=== PATIENT | male | born 1990 ===

== ENCOUNTER 2017-10-24 18:57 | Emergency (ER) | payer OTHER ==
[2017-10-24 19:03] VITALS: BMI 32.1
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
[2017-10-24 21:31] VITALS: BP 116/76; PULSE 71; RESP 16; TEMP 99
[2017-10-24 21:36] VITALS: O2SAT 100
--- NOTE | 2017-10-25 09:00 | RAD ---
PROCEDURE: Radiographs of the Left Shoulder HISTORY: fall onto shoulder COMPARISON: No prior. FINDINGS: BONES: Bone alignment and mineralization are normal. There is no acute displaced fracture or bone destruction. JOINTS: Normal. Glenohumeral and acromioclavicular joints preserved. SOFT TISSUES: Normal. OTHER FINDINGS: None. IMPRESSION: No acute fracture or dislocation.
--- NOTE | 2017-10-25 09:04 | RAD ---
PROCEDURE: Right Hip Radiographs. HISTORY: fall, hip injury and pain COMPARISON: None. FINDINGS: BONES: The pelvic ring is intact. Bone alignment and mineralization are normal. There is no acute displaced fracture or bone destruction. JOINTS: Normal. SOFT TISSUES: Normal. OTHER FINDINGS: None. IMPRESSION: No acute displaced fracture or dislocation.
== END 2017-10-24 21:32 | disposition home or self-care (01) ==
LOC: C.ER 18:57
DX: S70.01XA Contusion of right hip, initial encounter (principal); S43.402A Unspecified sprain of left shoulder joint, initial encounter; V13.4XXA Pedal cycle driver injured in collision with car, pick-up truck or van in traffic accident, initial encounter; Y93.55 Activity, bike riding; Z72.0 Tobacco use